=== PATIENT | female | born 1995 | race Caucasian/White ===

== ENCOUNTER 2020-10-18 21:52 | Emergency (ER) | payer BC, SELFPAY ==
[2020-10-18 22:07] VITALS: BP 132/80; PULSE 91; RESP 18; TEMP 36.9; O2SAT 100
--- NOTE | 2020-10-18 22:11 | ECG_ITS ---
Measurements Intervals [place] Rate: 96 P: 37 [place]: 142 QRS: 61 QRSD: 81 T: 22 QT: 334 QTc: 422 Interpretive Statements SINUS RHYTHM INCOMPLETE RIGHT BUNDLE BRANCH BLOCK BASELINE ARTIFACT- I, II, AVR, AVL, AVF BORDERLINE ECG Electronically Signed On 10-19-2020 7:01:31 CDT by Nadeem Ortiz D.O.
[2020-10-18 22:26] LABS: Basophils Percent Auto 0.7 % (0.2-1.2); Eosinophils Absolute Auto 0.1 K/mm3 (0-0.3); Eosinophils Percent Auto 1.9 % (0-4.4); Hematocrit 37.3 % (37.0-47.0); Hemoglobin 12.3 g/dL (12.0-15.0); Immature Granulocyte Absolute 0.01 K/mm3 (0.00-0.031); Immature Granulocyte Percent A 0.2 % (0-0.5); Lymphocytes Absolute Auto 1.73 K/mm3 (0.9-3.2); Lymphocytes Percent Auto 30.4 % (18.3-44.2); Mean Corpuscular Hemoglobin 31.8 pg (26-34); Mean Corpuscular Volume 96.4 fl (80-100); Monocytes Absolute Auto 0.5 K/mm3 (0.1-0.6); Monocytes Percent Auto 9.3 % (2.6-8.5); Neutrophils Absolute Auto 3.3 K/mm3 (1.3-6.7); Neutrophils Percent Auto 57.5 % (45.5-73.1); Platelet Count Result 284 k/mm3 (150-375); Red Blood Count 3.87 M/mm3 (4.2-5.4); Red Cell Distribution Width 12.3 % (11.5-14.5); White Blood Count 5.7 K/mm3 (4.5-10.0)
[2020-10-18 23:07] LABS: Anion Gap 10 mmol/L (8-16); Blood Urea Nitrogen 7 mg/dL (7-17); Calcium 9.5 mg/dL (8.4-10.2); Carbon Dioxide 22 mmol/L (22-30); Chloride 105 mmol/L (98-107); Estimated CRCL calculation 114 ml/min; Estimated Glomerular Filt Rate > 60; Glucose 83 mg/dL (65-110); Potassium 3.7 mmol/L (3.4-5.0); Sodium 137 mmol/L (137-145)
[2020-10-19 02:47] VITALS: BP 132/83; PULSE 83; RESP 18; TEMP 36.8; O2SAT 100
[2020-10-19 03:45] VITALS: BP 136/91; PULSE 82
[2020-10-19 03:46] VITALS: BP 149/115; PULSE 90
[2020-10-19 03:47] VITALS: BP 130/91; PULSE 88
--- NOTE | 2020-10-19 05:07 | ED.DIZZY ---
HPI - Dizziness General Chief Complaint: Dizziness Stated Complaint: dizziness x 2 hours Time Seen by Provider: 10/19/20 03:25 Source: patient and RN notes reviewed Mode of arrival: ambulatory Limitations: no limitations History of Present Illness HPI Narrative: This is a 25 year old female who presents for evaluation of dizziness. She states yesterday morning she noticed mild aching to her lower back. This pain was intermittent. She states when she went to work in the afternoon she had an episode of worsening pain. She states when the pain got worse she became nauseous and lightheadedness. She denies dizziness, nausea, abdominal pain or back pain. She denies chest pain, sob with her symptoms. She does report heart racing at time of dizziness. She has not taken anything for pain. She is currently on her menstrual cycle. MD elicited complaint: dizziness Related Data Allergies Allergy/AdvReac Type Severity Reaction Status Date / Time No Known Allergies Allergy Unverified 06/26/11 21:40 Review of Systems Review of Systems: All systems reviewed & are unremarkable except as noted in HPI and below PMFSH Past Medical History Medical History (Updated 10/19/20 @ 05:35 by Dorothea Clark MD) Patient denies medical problems Social History Social History (Updated 10/19/20 @ 05:12 by Dorothea Clark MD) Smoking status: Never smoker Exam Const: General: no acute distress and alert Orientation/consciousness: patient oriented x3 Eyes: EOM: EOMs intact bilaterally Resp: Effort & Inspection: normal respiratory effort and no retractions Auscultation: clear to auscultation bilaterally Cardio: Rate: regular rate Rhythm: regular rhythm Heart sounds: no murmurs GI: GI Palp: Yes Soft to palpation, No Tenderness to palpation present (GI) and No Guarding due to palpation present (GI) Auscultation: normal bowel sounds Back/Spine/Pelvis: Back: no CVA tenderness Skin: General skin exam: normal color Rashes: no rashes Neuro: General: patient oriented x3, moves all extremities and CN's II-XI intact bilaterally Psych: Mental Status: mental status grossly normal Affect: normal affect Course Reevaluation(s) Reevaluation #1: Patient is not having an pain and dizziness. It sounds likely she had near syncopal episode due to increasing pain. PERC negative. Will place on antibiotics. patient is currently on cycle so likely cause of hematuria Date: 10/19/20 Time: 05:32 Vital Signs Vital signs: Vital Signs Temperature 98.4 F 10/18/20 22:07 Pulse Rate 91 10/18/20 22:07 Respiratory Rate 18 10/18/20 22:07 Blood Pressure 132/80 10/18/20 22:07 Pulse Oximetry 100 10/18/20 22:07 Temperature 98.3 F 10/19/20 02:47 Pulse Rate 88 10/19/20 03:47 Respiratory Rate 18 10/19/20 02:47 Blood Pressure 130/91 H 10/19/20 03:47 Pulse Oximetry 100 10/19/20 02:47 MDM - Dizziness Lab Data Attestation: I reviewed the patient's lab results. Result diagrams: 10/18/20 22:17 10/18/20 22:17 Labs: Lab Results 10/18/20 10/18/20 10/19/20 Range/Units 22:17 22:17 04:57 WBC 5.7 (4.5-10.0) K/mm3 RBC 3.87 L (4.2-5.4) M/mm3 Hgb 12.3 (12.0-15.0) g/dL Hct 37.3 (37.0-47.0) % MCV 96.4 (80-100) fl MCH 31.8 (26-34) pg MCHC 33.0 (32-36) g/dl RDW 12.3 (11.5-14.5) % Plt Count 284 (150-375) k/mm3 MPV 9.0 (7.4-10.4) fl Immature Gran % (Auto) 0.2 (0-0.5) % Neut % (Auto) 57.5 (45.5-73.1) % Lymph % (Auto) 30.4 (18.3-44.2) % [place] % (Auto) 9.3 H (2.6-8.5) % Eos % (Auto) 1.9 (0-4.4) % Baso % (Auto) 0.7 (0.2-1.2) % Lymph # (Auto) 1.73 (0.9-3.2) K/mm3 [place] # (Auto) 0.5 (0.1-0.6) K/mm3 Eos # (Auto) 0.1 (0-0.3) K/mm3 Baso # (Auto) 0.0 (0.0-0.1) K/mm3 Abs Immat Gran (auto) 0.01 (0.00-0.031) K/mm3 Absolute Neuts (auto) 3.3 (1.3-6.7) K/mm3 Absolute Nucleated RBC 0.0 (0.0-0.
[2020-10-19 05:16] LABS: Add Urine Microscopic? YES; Appearance Urine Clear (Clear); Bacteria Urine Trace /hpf; Bilirubin Urine Negative (Negative); Blood Urine 3+ (Negative); Color Urine Yellow (Yellow); Glucose Urine UA Negative (Negative); Ketones Urine Negative (Negative); Leukocyte Esterase Ur Trace LEU/UL (Negative); Mucus Urine Rare /lpf; Nitrate Urine Negative (Negative); Protein Urine Negative (Negative); RBC Urine 21-50 /hpf (0-2); Squamous Epithelial Cell Urine Moderate /hpf (Few); Transitional Epi Cells Urine Rare /hpf (None Seen); Urobilinogen Urine Negative mg/dL (<2.0)
== END 2020-10-19 05:47 | disposition home or self-care (01) ==
PROVIDERS: Emergency Medicine; Emergency Provider General Practice; PCP Nurse Practitioner Adult Health
DX: N39.0 Urinary tract infection, site not specified (principal); R55 Syncope and collapse; M54.5 Low back pain
CPT/HCPCS: 36415; 80048; 81001; 81025; 85025; 87086; 87088; 87147; 93005; 99284